=== PATIENT | female | born 1960 | race Caucasian/White ===

== ENCOUNTER 2019-04-30 23:02 | Emergency (ER) | payer MEDICAID ==
[~2019-04-30] VITALS: Ht 162.6 cm; Wt 63.0 kg
[2019-04-30] MEDS ORDERED: PREDNISONE 20MG TABLET PO ONE (23:45)
[2019-04-30] MEDS ORDERED: DIPHENHYDRAMINE 25MG CAPSULE PO ONE (23:45)
[2019-04-30] MEDS ORDERED: FAMOTIDINE 20MG TABLET PO ONE (23:45)
[2019-05-01 02:30] VITALS: BP 112/55
== END 2019-05-01 02:40 | disposition home or self-care (01) ==
LOC: ER 23:02
DX: T78.40XA Allergy, unspecified, initial encounter (principal); X58.XXXA Exposure to other specified factors, initial encounter
CPT/HCPCS: 99284; J7512; Q0163